=== PATIENT | female | born 1950 | race Caucasian/White ===

== ENCOUNTER → 2017-01-15 | Outpatient (CLI) | payer MEDICARE ==
--- NOTE | 2017-01-18 09:09 | MM ---
Reason for exam: screening (asymptomatic). Last mammogram was performed 1 year and 5 months ago. History: Patient is postmenopausal. Family history of breast cancer in sister at age 50. Benign excisional biopsy of the left breast, January 21, 1999. Ultrasound-guided cyst aspiration of the left breast, January 08, 1999. Benign excisional biopsy of both breasts, 1989. Cyst aspiration of the left breast. Physical Findings: A clinical breast exam by your physician is recommended on an annual basis and results should be correlated with mammographic findings. MG Screening Mammo w CAD Bilateral CC and MLO view(s) were taken. Prior study comparison: August 16, 2015, bilateral MG screening mammo w CAD. January 03, 2014, bilateral MG screening mammo w CAD. The breast tissue is heterogeneously dense. This may lower the sensitivity of mammography. Finding: There are typically benign round, grouped/clustered calcifications in both breasts. There is no discrete abnormality. ASSESSMENT: Benign, BI-RAD 2 RECOMMENDATION: Routine screening mammogram of both breasts in 1 year.
== END | disposition home or self-care (01) ==
LOC: RADMAMWWP 11:19
PROVIDERS: ATTEND Family Medicine
DX: Z12.31 Encounter for screening mammogram for malignant neoplasm of breast (principal)

== ENCOUNTER → 2018-04-07 | Outpatient (CLI) | payer MEDICARE ==
--- NOTE | 2018-04-08 10:32 | MM ---
Reason for exam: screening (asymptomatic). Last mammogram was performed 1 year and 3 months ago. History: Patient is postmenopausal. Family history of breast cancer in sister at age 50. Benign excisional biopsy of the left breast, January 21, 1999. Ultrasound-guided cyst aspiration of the left breast, January 08, 1999. Benign excisional biopsy of both breasts, 1989. Cyst aspiration of the left breast. Physical Findings: A clinical breast exam by your physician is recommended on an annual basis and results should be correlated with mammographic findings. MG 3D Screening Mammo W/Cad Bilateral CC and MLO view(s) were taken. Prior study comparison: January 15, 2017, bilateral MG screening mammo w CAD. August 16, 2015, bilateral MG screening mammo w CAD. The breast tissue is extremely dense which could obscure a lesion on mammography. Finding #1: There is a 5 mm equal density (isodense) mass in the lower outer quadrant of the right breast. Finding #2: There are typically benign calcifications in both breasts. ASSESSMENT: Incomplete: need additional imaging evaluation, BI-RAD 0 RECOMMENDATION: Special view mammogram of the right breast. If lesion persists on supplemental views, image directed ultrasound is recommended. [facility] will attempt to contact patient to return for supplemental views and ultrasound if indicated.
--- NOTE | 2018-04-12 06:44 | BD ---
EXAMINATION TYPE: Axial Bone Density DATE OF EXAM: 04/07/2018 COMPARISON: DEXA bone scan August 16, 2015 CLINICAL HISTORY: Osteopenia per order. Height: 5 FT 3 IN Weight: 185 FRAX RISK QUESTIONS: Family History (Parent hip fracture): YES Secondary Osteoporosis: 3. Menopause before 45: YES Current Tobacco Use: YES RISK FACTORS HISTORY OF: Family History of Osteoporosis: YES Postmenopausal woman: AGE [age] Lost more than 2 inches in height since high school: YES MEDICATIONS: Thyroid Medications: YES Which medication: SYNTHROID How Long: APPROX 10 YEARS Additional Medications: SYNTHROID,EFFEXOR, STATIN, Additional History: EXAM MEASUREMENTS: Bone mineral densitometry was performed using the [employer] System. Bone mineral density as measured about the Lumbar spine is: ----- L1-L4(G/cm2): 1.333 T Score Values are as follows: ----- L2: 1.3 ----- L3: 2.4 ----- L4: 1.0 ----- L1-L4: 1.3 Bone mineral density has: INCREASED 3.4 % since study of: 2015 Bone mineral density about the R hip (g/cm2): 0.821 Bone mineral density about the L hip (g/cm2): 0.808 T Score values are as follows: -----R Neck: -1.6 -----L Neck: -1.7 -----R Total: -0.8 -----L Total: -1.1 Bone mineral density has: INCREASED 1.5 % since study of: 2015 IMPRESSION: Osteopenia (T Score between -2.5 and -1) persists femoral neck level in both hips. Bone density stabl e from prior. There remains slightly increased risk of fracture and the patient may be considered for treatment. Re-Screen 2-5 years. NOTE: T-SCORE=SD OF THE YOUNG ADULT MEAN.
== END | disposition home or self-care (01) ==
LOC: RADMAMWWP 15:45
PROVIDERS: ATTEND Family Medicine
DX: Z12.31 Encounter for screening mammogram for malignant neoplasm of breast (principal); M85.80 Other specified disorders of bone density and structure, unspecified site
CPT/HCPCS: 77063; 77067; 77080

== ENCOUNTER → 2018-04-26 | Outpatient (CLI) | payer MEDICARE ==
--- NOTE | 2018-04-27 08:51 | MM ---
Reason for exam: additional evaluation requested from abnormal screening. Last mammogram was performed 1 month ago. History: Patient is postmenopausal. Family history of breast cancer in sister at age 50. Benign excisional biopsy of the left breast, January 21, 1999. Ultrasound-guided cyst aspiration of the left breast, January 08, 1999. Benign excisional biopsy of both breasts, 1989. Cyst aspiration of the left breast. Physical Findings: Nurse did not find any significant physical abnormalities on exam. MG 3D Work Up W/Cad RT CC and MLO view(s) were taken of the right breast. Prior study comparison: April 07, 2018, bilateral MG 3d screening mammo w/cad. January 15, 2017, bilateral MG screening mammo w CAD. The breast tissue is heterogeneously dense. This may lower the sensitivity of mammography. The questioned 8 o'clock focal asymmetry measures 6 x 4mm. It is isodense and circumscribed. On CC, it appears to have been present on 2013 and on MLO, it appears to have been present on 2011. 6 month follow up recommended. These results were verbally communicated with the patient and result sheet given to the patient on 04/26/18. ASSESSMENT: Probably benign, BI-RAD 3 RECOMMENDATION: Follow-up diagnostic mammogram of the right breast in 6 months.
== END | disposition home or self-care (01) ==
LOC: RADMAMWWP 15:45
PROVIDERS: ATTEND Family Medicine
DX: R92.8 Other abnormal and inconclusive findings on diagnostic imaging of breast (principal)
CPT/HCPCS: 77065; G0279; 77061

== ENCOUNTER → 2019-01-25 | Outpatient (CLI) | payer MEDICARE ==
[2019-01-25 10:38] LABS: Basophils % (A) 1 %; Eosinophils # (A) 0.1 k/uL (0-0.7); Eosinophils % (A) 1 %; HCT 45.1 % (34.0-46.0); HGB 14.4 gm/dL (11.4-16.0); Lymphocytes # (A) 2.1 k/uL (1.0-4.8); Lymphocytes % (A) 34 %; MCH 30.4 pg (25.0-35.0); Mean Platelet Volume 9.6; Monocytes # (A) 0.3 k/uL (0-1.0); Monocytes % (A) 5 %; Neutrophils # (A) 3.6 k/uL (1.3-7.7); Neutrophils % (A) 56 %; Platelet Count 192 k/uL (150-450); RBC 4.74 m/uL (3.80-5.40); RDW 13.8 % (11.5-15.5); WBC 6.3 k/uL (3.8-10.6)
[2019-01-25 10:50] LABS: Ionized Calcium 5.3 mg/dL (4.5-5.3)
[2019-01-25 15:56] LABS: T4, Free (Free Thyroxine) 1.2 ng/dL (0.80-1.80)
== END | disposition home or self-care (01) ==
LOC: LABWHC1 09:44
PROVIDERS: ATTEND Physician Assistant
DX: E03.9 Hypothyroidism, unspecified (principal); E21.0 Primary hyperparathyroidism; Z51.81 Encounter for therapeutic drug level monitoring
CPT/HCPCS: 36415; 82330; 83970; 84439; 84443; 85025

== ENCOUNTER → 2022-01-28 | Outpatient (CLI) | payer MEDICARE ==
--- NOTE | 2022-01-28 16:40 | CTL ---
EXAMINATION TYPE: CT Low Dose Lung DATE OF EXAM ORDERED: 01/28/2022 HISTORY: Personal tobacco use. Lung cancer screening CT DLP: 76.[address] CTDI: 2.4 mGy Automated exposure control for dose reduction was used. SCREENING VISIT: First screening COMPARISON: None TECHNIQUE: Low dose computed tomography scan was performed through the chest at 1 mm thick sections a nd reconstructed images in multiple planes at 1 mm and [address] DIAGNOSTIC QUALITY: Satisfactory FINDINGS: LUNG NODULES: No concerning pulmonary nodules. LUNGS: COPD: Severity: Mild centrilobular and paraseptal emphysematous changes. Fibrosis: Severity: None Lymph nodes: None Other findings: None RIGHT PLEURAL SPACE: Effusion: None Calcification: None Thickening: None Pneumothorax: None LEFT PLEURAL SPACE: Effusion: None Calcification: None Thickening: None Pneumothorax: None HEART: Heart Size: Normal Coronary Calcification: None Pericardial Effusion: None OTHER FINDINGS: Upper abdomen: None Bony thorax: None Supraclavicular region: None Other: Atherosclerotic calcification of the aorta and its branches. Small hiatal hernia. IMPRESSION: No concerning pulmonary nodules. Mild COPD changes. CT LUNG RAD AND CT CHEST RECOMMENDATION: Lung-Rad 1 Negative: Continue annual screening with LDCT in 12 months. S Modifier (other clinically significant findings): None
== END | disposition home or self-care (01) ==
LOC: RADCTMAIN 12:40
PROVIDERS: ATTEND Internal Medicine
DX: J44.9 Chronic obstructive pulmonary disease, unspecified (principal)
CPT/HCPCS: 71271

== ENCOUNTER → 2022-06-18 | Outpatient (CLI) | payer MEDICARE ==
--- NOTE | 2022-06-19 13:40 | MM ---
Reason for Exam: Screening (asymptomatic). Last mammogram was performed 4 year(s) and 2 month(s) ago. Patient History: Menarche at age 9. First Full-Term at age 19. Postmenopausal. 1989, Bilateral Benign Excisional Biopsy. Cyst Aspiration on the Left side. 01/21/1999, Benign Excisional Biopsy on the left side. 01/08/1999, Ultrasound-Guided Cyst Aspiration on the Left side. Sister had breast cancer, age 50. Sister had breast cancer under age 50. Risk Values: Stephy 5 year model risk: 11.4%. NCI Lifetime model risk: 26.9%. Prior Study Comparison: 01/15/2017 Bilateral Screening Mammogram, [facility]. 04/07/2018 Bilateral Screening Mammogram, [facility]. 04/26/2018 Right Diagnostic Mammogram, [facility]. Tissue Density: The breast tissue is heterogeneously dense. This may lower the sensitivity of mammography. Findings: Analyzed By CAD. Pattern appears symmetrical and stable. Multiple benign scattered calcifications are present. No suspicious groups of microcalcifications, spiculated or lobular masses, architectural distortion or other secondary signs of malignancy are mammographically apparent. Overall Assessment: Benign, BI-RAD 2 Management: Screening Mammogram of both breasts in 1 year. A negative mammogram report should not preclude additional follow up of suspicious palpable abnormalities. Patient should continue monthly self breast exam. A clinical breast exam by your physician is recommended on an annual basis and results should be correlated with mammographic findings. Electronically signed and approved by: Alton Arauz D.O. Radiologis
--- NOTE | 2022-06-19 15:05 | BD ---
EXAMINATION TYPE: Axial Bone Density DATE OF EXAM: 06/18/2022 COMPARISON: 04-07-18 CLINICAL HISTORY: 71 years year old Female. ICD-10 CODE: Z78.0 menopausal without HRT Height: 63IN Weight: 177LB FRAX RISK QUESTIONS: Family History (Parent hip fracture): YES Secondary Osteoporosis: 3. Menopause before 45: AT 44 Current Tobacco Use: YES RISK FACTORS HISTORY OF: Family History of Osteoporosis: YES Active: NO Postmenopausal woman: YES Lost more than 2 inches in height since high school: YES Frequent falls: YES Hyperparathyroidism: PT UNSURE MEDICATIONS: Thyroid Medications: Which medication: Synthroid How Long: ABOUT 20 YEARS Additional Medications: CHOLESTEROL MED, EFFEXOR, CALCIUM WITH VITAMIN D Additional History: EXAM MEASUREMENTS: Bone mineral densitometry was performed using the [employer] System. Bone mineral density as measured about the Lumbar spine is: ----- L1-L4(G/cm2): 1.364 T Score Values are as follows: ----- L1: 0.5 ----- L2: 1.4 ----- L3: 2.2 ----- L4: 1.7 ----- L1-L4: 1.5 Bone mineral density has: Increased 2.4% since study of: 04-07-18 Bone mineral density about the R hip (g/cm2): 0.878 Bone mineral density about the L hip (g/cm2): 0.832 T Score values are as follows: -----R Neck: -1.9 -----L Neck: -1.8 -----R Total: -1.0 -----L Total: -1.4 Bone mineral density has: Decreased -3.7% since study of: 04-07-18 FRAX%s: The graph provided illustrates a 21.1% chance for a major osteoporotic fx and a 11.0% chance for the hips probability for fx in 10 years time. IMPRESSION: Osteopenia (T Score between -2.5 and -1). There is slightly increased risk of fracture and the patient may be considered for treatment. Re-Screen 2-5 years. NOTE: T-SCORE=SD OF THE YOUNG ADULT MEAN.
== END | disposition home or self-care (01) ==
LOC: RADBDWWP 12:55
PROVIDERS: ATTEND Internal Medicine
DX: Z12.31 Encounter for screening mammogram for malignant neoplasm of breast (principal); Z13.820 Encounter for screening for osteoporosis; M85.89 Other specified disorders of bone density and structure, multiple sites; Z78.0 Asymptomatic menopausal state
CPT/HCPCS: 77063; 77067; 77080

== ENCOUNTER → 2022-12-28 | Outpatient (CLI) | payer MEDICARE ==
--- NOTE | 2022-12-28 14:40 | US ---
EXAMINATION TYPE: US thyroid st tissue head/neck DATE OF EXAM: 12/28/2022 COMPARISON: 03/28/2014 CLINICAL INDICATION: Female, 72 years old with history of E03.9 HYPOTHYROIDISM; ABN BLOODWORK, ON THY ROID MEDICATION 10+ YEARS, PARATHYROID GLAND REMOVED 10 YEARS PRIOR GLAND SIZE: Right Lobe: 3.4X0.9X1.0 cm Overall Parenchyma: heterogenous Left Lobe: 2.0X0.8X0.9 cm Overall Parenchyma: heterogenous Isthmus Thickness: 0.3 cm NODULES RIGHT: # of nodules measured on right: 0 LEFT: # of nodules measured on left: 0 ISTHMUS: # of nodules measured in the isthmus: 0 Bilateral neck scanned, lymphadenopathy NOTED ON LEFT SIDE NEAR JUGULAR CHAIN, LARGEST MEASURES 3.0X1 .6X0.6CM. This demonstrates benign morphology with central fatty hilum. IMPRESSION: Heterogenous mildly atrophic thyroid gland. Previously seen complex left thyroid nodule is not defini tively visualized on today's exam. No new discrete thyroid nodule identified. 2017 ACR TI-RADS LEVEL: *Highest TI-RADS level nodule reported
== END | disposition home or self-care (01) ==
LOC: RADUSWWP 13:46
PROVIDERS: ATTEND Internal Medicine
DX: E03.9 Hypothyroidism, unspecified (principal); E04.1 Nontoxic single thyroid nodule
CPT/HCPCS: 76536

== ENCOUNTER → 2023-10-15 | Outpatient (CLI) | payer MEDICARE ==
[2023-10-15 12:35] LABS: ALT 43 U/L (4-34); AST 40 U/L (14-36); African American GFR (CKD) 71 (>60 ml/min/1.73 sqM); Albumin 4.3 g/dL (3.5-5.0); Albumin/Globulin Ratio 1.7; Alkaline Phosphatase 72 U/L (38-126); Anion Gap 7 mmol/L; Blood Urea Nitrogen 14 mg/dL (7-17); Calcium 9.6 mg/dL (8.4-10.2); Carbon Dioxide 26 mmol/L (22-30); Chloride 108 mmol/L (98-107); Globulin 2.5 g/dL; Glucose 108 mg/dL (74-99); Non-African American GFR(CKD) 62 (>60 ml/min/1.73 sqM); Potassium 3.9 mmol/L (3.5-5.1); Sodium 141 mmol/L (137-145); Total Bilirubin 0.8 mg/dL (0.2-1.3); Total Protein 6.8 g/dL (6.3-8.2)
[2023-10-15 12:44] LABS: T4, Free (Free Thyroxine) 1.15 ng/dL (0.78-2.19)
[2023-10-15 16:06] LABS: Basophils # (A) 0.04 X 10*3/uL (0.00-0.10); Basophils % (A) 0.5 %; Eosinophils # (A) 0.05 X 10*3/uL (0.04-0.35); Eosinophils % (A) 0.6 %; HCT 46.2 % (37.2-46.3); HGB 14.7 g/dL (12.0-15.0); Lymphocytes # (A) 1.64 X 10*3/uL (0.90-5.00); Lymphocytes % (A) 19.2 %; MCH 32.3 pg (27.0-32.0); MCHC 31.8 g/dL (32.0-37.0); MCV 101.5 FL (80.0-97.0); Mean Platelet Volume 13.7 FL (9.5-12.2); Monocytes # (A) 0.55 X 10*3/uL (0.20-1.00); Monocytes % (A) 6.5 %; NRBC Per 100 WBC 0 X 10*3/uL (0.00-0.01); Neutrophils % (A) 72.7 %; Platelet Count 183 X 10*3/uL (140-440); RBC 4.55 X 10*6/uL (4.10-5.20); RDW 14.3 % (11.5-14.5); WBC 8.52 X 10*3/uL (4.50-10.00)
[2023-10-15 19:17] LABS: Chol/HDL Ratio 3.69 Ratio; VLDL Calculation 18.52 mg/dL (5.00-40.00)
== END | disposition home or self-care (01) ==
LOC: LABWHC1 11:19
PROVIDERS: ATTEND Internal Medicine
DX: I10 Essential (primary) hypertension (principal); E78.5 Hyperlipidemia, unspecified; M85.80 Other specified disorders of bone density and structure, unspecified site; R19.7 Diarrhea, unspecified
CPT/HCPCS: 36415; 80053; 80061; 82140; 82306; 82330; 82607; 82746; 84439; 84443; 85025; 86780

== ENCOUNTER 2023-11-02 12:40 | Inpatient (IN) | payer MEDICARE ==
--- NOTE | 2023-11-02 14:16 | ED ---
Altered Mental Status HPI - General Source: patient, family, RN notes reviewed Mode of arrival: wheelchair Limitations: no limitations <Lio Parra - Last Filed: 11/02/23 14:14> <Donny Shirley - Last Filed: 11/02/23 18:08> - General Chief Complaint: Altered Mental Status Stated Complaint: Fall-Chest pains/AMS Time Seen by Provider: 11/02/23 12:59 - History of Present Illness Initial Comments: Quick [id number] female presents emergency department with family for increasing confusion, shortness of breath. Family states that she has been very forgetful recently. Patient saw PCP who is scheduled MRIs, CTs but due to worsening symptoms presented to emergency department. Patient states she does have COPD feels that is getting worse. They did attempt a urinalysis today but was unsuccessful. Family has not noticed any focal weakness just generalized confusion. (Lio Parra) 72-year-old female with progressive confusion over the past 2 months, history is obtained predominantly from the daughter. The patient herself has no complaints. She believes it is fall timeframe. She does live alone. She reports poor appetite. No pain complaints. No fever. No dysuria. No vomiting. There is left-sided facial droop although the daughter is uncertain of when this may have started. (Donny Shirley) - Related Data Home Medications Medication Instructions Recorded Confirmed Atorvastatin [Lipitor] 40 mg PO DAILY 11/02/23 11/02/23 Calcium Carbonate [Calcium] 600 mg PO DAILY 11/02/23 11/02/23 Esomeprazole Magnesium [NexIUM] 20 mg PO DAILY 11/02/23 11/02/23 Levothyroxine Sodium [Synthroid] 137 mcg PO DAILY 11/02/23 11/02/23 Levothyroxine Sodium [Synthroid] 150 mcg PO DIRECTED 11/02/23 11/02/23 Venlafaxine HCl [Effexor XR] 150 mg PO DAILY 11/02/23 11/02/23 amLODIPine [Norvasc] 5 mg PO DAILY 11/02/23 11/02/23 Allergies Allergy/AdvReac Type Severity Reaction Status Date / Time diphenhydramine AdvReac Hallucinati Verified 11/02/23 17:23 [From Benadryl] ons Review of Systems ROS Other: All systems not noted in ROS Statement are negative. <Lio Parra - Last Filed: 11/02/23 14:14> ROS Other: All systems not noted in ROS Statement are negative. <Donny Shirley - Last Filed: 11/02/23 18:08> ROS Statement: Those systems with pertinent positive or pertinent negative responses have been documented in the HPI. Past Medical History Past Medical History: GERD/Reflux, Hyperlipidemia, Thyroid Disorder Additional Past Surgical History / Comment(s): thyroidectomy Past Psychological History: Depression Past Alcohol Use History: None Reported Past Drug Use History: None Reported <Lio Parra - Last Filed: 11/02/23 14:14> General Exam Limitations: no limitations General appearance: alert, in no apparent distress <Lio Parra - Last Filed: 11/02/23 14:14> Head exam: Present: atraumatic, normocephalic Eye exam: Present: normal appearance, PERRL ENT exam: Present: normal exam Neck exam: Present: normal inspection. Absent: tenderness, meningismus Respiratory exam: Present: normal lung sounds bilaterally. Absent: respiratory distress, wheezes Cardiovascular Exam: Present: regular rate, normal rhythm GI/Abdominal exam: Present: soft. Absent: distended Extremities exam: Present: normal inspection Neurological exam: Present: alert, CN II-XII intact, motor sensory deficit (Left facial droop, NIH of 1). Absent: oriented X3 Psychiatric exam: Present: normal affect, normal mood Skin exam: Present: warm, dry, intact. Absent: cyanosis, diaphoretic <Donny Shirley - Last Filed: 11/02/23 18:08> - General Exam Comments Initial Comments: Visual Physical Exam Vital signs reviewed General: Well-appearing, nontoxic, no acute distress. Head: Normocephalic, atraumatic Eyes: PERRLA, EOMI ENT: Airway patent Chest: Nonlabored breathing Skin: No visual rash, normal skin tone Neuro: Alert and oriented 3 Musculoskeletal: No gross abnormalities (Lio Parra) Course Vital Signs 11/02/23 11/02/23 13:15 17:21 Temperature 97.8 F Pulse Rate 87 78 Respiratory 18 16 Rate Blood Pressure 123/73 113/52 O2 Sat by Pulse 95 98 Oximetry Medical Decision Making <Lio Parra - Last Filed: 11/02/23 14:14> - Lab Data Result diagrams: 11/02/23 16:31 11/02/23 16:31 <Donny Shirley - Last Filed: 11/02/23 18:08> - Medical Decision Making I completed the quick note portion of this chart signed Lio Parra PA-C (Lio Parra) Was pt. sent in by a medical professional or institution (MARIAH Tan, UNIX MANAGER, urgent care, hospital, or shelter...) When possible be specific @ -No Did you speak to anyone other than the patient for history (EMS, parent, family, police, friend...)? What history was obtained from this source @Patient's daughter Did you review nursing and triage notes (agree or disagree)? Why? @ -I reviewed and agree with nursing and triage notes Were old charts reviewed (outside hosp., previous admission, EMS record, old EKG, old radiological studies, urgent care reports/EKG's, shelter records)? Report findings @ -No old charts were reviewed Differential CVA Ischemic stroke, hemorrhagic stroke, brain tumor, atypical migraine, Wernicke's encephalopathy, seizure, multiple sclerosis, meningitis, encephalitis, hypoglycemia, Guillain-Pederson, electrolytes disturbance, myasthenia gravis.... This is not meant to be an all-inclusive list EKG interpreted by me (3pts min.). @ -Sinus rhythm rate of 83, WA interval 120, QRS duration 82, QTc [address] segment changes. X-rays interpreted by me (1pt min.). @ -Chest x-ray, small right pleural effusion, no additional acute findings. CT interpreted by me (1pt min.). @CT brain showing remote CVA without intracranial hemorrhage or mass effect. U/S interpreted by me (1pt. min.). @ -None done What testing was considered but not performed or refused? (CT, X-rays, U/S, labs)? Why? @ -None What meds were considered but not given or refused? Why? @ -None Did you discuss the management of the patient with other professionals (professionals i.e. MARIAH Tan, UNIX MANAGER, lab, RT, psych nurse, licensed social worker, associate dean, teacher, port patrol officer, case filler)? Give summary @ -No Was smoking cessation discussed for >3mins.? @ -No Was critical care preformed (if so, how long)? @ -No Were there social determinants of health that impacted care today? How? (Homelessness, low income, unemployed, alcoholism, drug addiction, transportation, low edu. Level, literacy, decrease access to med. care, m[facility], r ehab)? @ -No Was there de-escalation of care discussed even if they declined (Discuss DNR or withdrawal of care, Hospice)? DNR status @ -No What co-morbidities impacted this encounter? (DM, HTN, Smoking, COPD, CAD, Cancer, CVA, ARF, Chemo, Hep., AIDS, mental health diagnosis, sleep apnea, morbid obesity)? @ -None Was patient admitted / discharged? Hospital course, mention meds given and route, prescriptions, significant lab abnormalities, going to OR and other pertinent info. @ -Patient admitted for further evaluation of confusion, CVA. Patient's symptoms have been progressive over the past [address] brain does show concern for CVA without prior history. Patient given aspirin in the emergency department and will be admitted for further stroke evaluation, neurology placed on consult. Case discussed with Dr. Rae. Undiagnosed new problem with uncertain prognosis? @ -No Drug Therapy requiring intensive monitoring for toxicity (Heparin, Nitro, Insulin, Cardizem)? @ -No Were any procedures done? @ -No Diagnosis/symptom? @Altered mental status, CVA Acute, or Chronic, or Acute on Chronic? @ -[Acute Uncomplicated (without systemic symptoms) or Complicated (systemic symptoms)? @ -Default Side effects of treatment? @ -No Exacerbation, Progression, or Severe Exacerbation? @ -No Poses a threat to life or bodily function? How? (Chest pain, [place], AR, pneumonia, PE, COPD, DKA, ARF, appy, cholecystitis, CVA, Diverticulitis, Homicidal, Suicidal, threat to staff... and all critical care pts) @Yes, CVA (Donny Shirley) - Lab Data Lab Results 11/02/23 11/02/23 11/02/23 Range/Units 16:31 16:31 16:31 WBC 8.8 (3.8-10.6) k/uL RBC 4.22 (3.80-5.40) m/uL Hgb 13.6 (11.4-16.0) gm/dL Hct 42.1 (34.0-46.0) % MCV 99.7 (80.0-100.0) fL MCH 32.3 (25.0-35.0) pg MCHC 32.4 (31.0-37.0) g/dL RDW 13.1 (11.5-15.5) % Plt Count 223 (150-450) k/uL MPV 9.6 Neutrophils % 66 % Lymphocytes % 23 % Monocytes % 7 % Eosinophils % 1 % Basophils % 1 % Neutrophils # 5.8 (1.3-7.7) k/uL Lymphocytes # 2.0 (1.0-4.8) k/uL Monocytes # 0.7 (0-1.0) k/uL Eosinophils # 0.1 (0-0.7) k/uL Basophils # 0.1 (0-0.2) k/uL Sodium 138 (137-145) mmol/L Potassium 3.6 (3.5-5.1) mmol/L Chloride 106 (98-107) mmol/L Carbon Dioxide 25 (22-30) mmol/L Anion Gap 7 mmol/L BUN 11 (7-17) mg/dL Creatinine 0.57 (0.52-1.04) mg/dL Est GFR (CKD-EPI)AfAm >90 (>60 ml/min/1.73 sqM) Est GFR (CKD-EPI)NonAf >90 (>60 ml/min/1.73 sqM) Glucose 97 (74-99) mg/dL Calcium 9.1 (8.4-10.2) mg/dL Total Bilirubin 1.1 (0.2-1.3) mg/dL AST 23 (14-36) U/L ALT 19 (4-34) U/L Alkaline Phosphatase 91 (38-126) U/L Ammonia <9 (<30) umol/L Troponin I (0.000-0.034) ng/mL Total Protein 6.3 (6.3-8.2) g/dL Albumin 3.6 (3.5-5.0) g/dL 11/02/23 Range/Units 16:31 WBC (3.8-10.6) k/uL RBC (3.80-5.40) m/uL Hgb (11.4-16.0) gm/dL Hct (34.0-46.0) % MCV (80.0-100.0) fL MCH (25.0-35.0) pg MCHC (31.0-37.0) g/dL RDW (11.5-15.5) % Plt Count (150-450) k/uL MPV Neutrophils % % Lymphocytes % % Monocytes % % Eosinophils % % Basophils % % Neutrophils # (1.3-7.7) k/uL Lymphocytes # (1.0-4.8) k/uL Monocytes # (0-1.0) k/uL Eosinophils # (0-0.7) k/uL Basophils # (0-0.2) k/uL Sodium (137-145) mmol/L Potassium (3.5-5.1) mmol/L Chloride (98-107) mmol/L Carbon Dioxide (22-30) mmol/L Anion Gap mmol/L BUN (7-17) mg/dL Creatinine (0.52-1.04) mg/dL Est GFR (CKD-EPI)AfAm (>60 ml/min/1.73 sqM) Est GFR (CKD-EPI)NonAf (>60 ml/min/1.73 sqM) Glucose (74-99) mg/dL Calcium (8.4-10.2) mg/dL Total Bilirubin (0.2-1.3) mg/dL AST (14-36) U/L ALT (4-34) U/L Alkaline Phosphatase (38-126) U/L Ammonia (<30) umol/L Troponin I <0.012 (0.000-0.034) ng/mL Total Protein (6.3-8.2) g/dL Albumin (3.5-5.0) g/dL Disposition <Lio Parra M - Last Filed: 11/02/23 14:14> Is patient prescribed a controlled substance at d/c from ED?: No Time of Disposition: 17:59 <Donny Shirley - Last Filed: 11/02/23 18:08> Clinical Impression: Altered mental status, CVA (cerebral vascular accident) Disposition: ADMITTED IP TO THIS HOSP Condition: Stable
--- NOTE | 2023-11-02 14:42 | CT ---
EXAMINATION TYPE: CT brain wo con CT DLP: 1137.0 mGycm, Automated exposure control for dose reduction was used. DATE OF EXAM: 11/02/2023 2:32 PM COMPARISON: None. CLINICAL INDICATION:Female, 72 years old with history of Altered mental status, AMS TECHNIQUE: Brain: Axial CT images of the brain were obtained with coronal and sagittal reformats created and rev iewed. Contrast used: None. Oral contrast used: None. FINDINGS: Brain: Extra-axial spaces: No abnormal extra-axial fluid collections. Ventricular system: Dilatation in proportion to cerebral atrophy. Cerebral parenchyma: Cerebral atrophy. Injuries of the right basal ganglia right caudate nucleus and bilateral thalami thought to be present. No acute intraparenchymal hemorrhage or mass effect. The gr ay-white junction is well differentiated. Scattered hypoattenuating areas are seen within the white m atter. Cerebellum: Unremarkable. Mass effect: No evidence of midline shift. Intracranial vasculature: Atherosclerotic calcifications of the intracranial vessels. Soft tissues: Normal. Calvarium/osseous structures: No depressed skull fracture. Paranasal sinuses and mastoid air cells: Mild scattered paranasal sinus disease. Visualized orbits: Orbital contents are intact. IMPRESSION: 1. No acute intracranial process. 2. Nonspecific white matter changes, likely secondary to chronic small vessel ischemic disease. 3. Remote injuries to the right basal ganglia right caudate nucleus and thalami. Correlate with MRI
--- NOTE | 2023-11-02 15:45 | XR ---
EXAMINATION TYPE: XR chest 2V DATE OF EXAM: 11/02/2023 3:39 PM CLINICAL INDICATION:Female, 72 years old with history of altered mental status; COMPARISON: None TECHNIQUE: XR chest 2V Frontal and lateral views of the chest. FINDINGS: Lungs/Pleura: Blunting of the right costophrenic angle. There is no evidence of left pleural effusion , focal consolidation, or pneumothorax. Pulmonary vascularity: Unremarkable. Heart/mediastinum: Cardiomediastinal silhouette is unremarkable. Atherosclerotic calcifications are seen in the aorta. Musculoskeletal: No acute osseous pathology. IMPRESSION: 1. Small right pleural effusion. 2. COPD.
[2023-11-02 16:47] LABS: Basophils # (A) 0.1 k/uL (0-0.2); Basophils % (A) 1 %; Eosinophils # (A) 0.1 k/uL (0-0.7); Eosinophils % (A) 1 %; HCT 42.1 % (34.0-46.0); HGB 13.6 gm/dL (11.4-16.0); Lymphocytes % (A) 23 %; MCH 32.3 pg (25.0-35.0); MCHC 32.4 g/dL (31.0-37.0); MCV 99.7 fL (80.0-100.0); Mean Platelet Volume 9.6; Monocytes # (A) 0.7 k/uL (0-1.0); Monocytes % (A) 7 %; Neutrophils # (A) 5.8 k/uL (1.3-7.7); Neutrophils % (A) 66 %; Platelet Count 223 k/uL (150-450); RBC 4.22 m/uL (3.80-5.40); RDW 13.1 % (11.5-15.5); WBC 8.8 k/uL (3.8-10.6)
[2023-11-02 17:02] LABS: ALT 19 U/L (4-34); AST 23 U/L (14-36); African American GFR (CKD) >90 (>60 ml/min/1.73 sqM); Albumin 3.6 g/dL (3.5-5.0); Alkaline Phosphatase 91 U/L (38-126); Anion Gap 7 mmol/L; Blood Urea Nitrogen 11 mg/dL (7-17); Calcium 9.1 mg/dL (8.4-10.2); Carbon Dioxide 25 mmol/L (22-30); Chloride 106 mmol/L (98-107); Glucose 97 mg/dL (74-99); Non-African American GFR(CKD) >90 (>60 ml/min/1.73 sqM); Potassium 3.6 mmol/L (3.5-5.1); Sodium 138 mmol/L (137-145); Total Bilirubin 1.1 mg/dL (0.2-1.3); Total Protein 6.3 g/dL (6.3-8.2)
[2023-11-02] MEDS: ASPIRIN 325 MG TAB PO STA (17:19)
[2023-11-02 18:48] LABS: Prothrombin Time 10.6 sec (10.0-12.5)
[2023-11-02 18:49] LABS: Partial Thromboplastin Time 22.3 sec (22.0-30.0)
--- NOTE | 2023-11-02 19:27 | US ---
EXAMINATION TYPE: US carotid duplex BILAT DATE OF EXAM: 11/02/2023 COMPARISON: NONE CLINICAL INDICATION: Female, 72 years old with history of Stenosis; stenosis Slightly limited due to pt SOB TECHNIQUE: Carotid duplex ultrasound examination. Indirect Doppler criteria was utilized. FINDINGS: EXAM MEASUREMENTS: RIGHT: Peak Systolic Velocity (PSV) cm/sec ----- Right CCA: 90.4 ----- Right ICA: 70.8 ----- Right ECA: 88.1 ICA/CCA ratio: 0.8 RIGHT: End Diastole cm/sec ----- Right CCA: 28.1 ----- Right ICA: 25.2 ----- Right ECA: 15.7 LEFT: Peak Systolic Velocity (PSV) cm/sec ----- Left CCA: 70.3 ----- Left ICA: 87.7 ----- Left ECA: 97.8 ICA/CCA ratio: 1.25 LEFT: End Diastole cm/sec ----- Left CCA: 18.4 ----- Left ICA: 28.6 ----- Left ECA: 36.4 VERTEBRALS (direction of flow): Right Vertebral: Antegrade Left Vertebral: Antegrade Rhythm: Normal PHYSIOLOGICAL CHEMIST NOTES: Plaque seen in bilat bulbs. Left ICA appears tortuous IMPRESSION: Atherosclerotic disease without significant stenosis.
[2023-11-02] MEDS: ATORVASTATIN 80 MG TAB PO SCH (20:31)
--- NOTE | 2023-11-03 01:46 | P.HPIM ---
History of Present Illness H&P Date: 11/02/23 Patient is a 72-year-old female with a PMH of hypertension, hyperlipidemia, and hypothyroidism who was brought into the emergency room by family due to worsening confusion. The history was supplemented by the patient's daughter at the bedside. Patient reports that over the past 2 months, she has been experiencing somewhat unsteady gait and has experienced 1 fall at home several weeks ago. She also reports not quite feeling like herself during this time. Daughter notes that she has been increasingly confused, and lives by herself. She has been following with her PCP Dr. Arambula who had ordered brain MRI which has yet to be completed. The patient denied experiencing focal weakness, heada ches, visual disturbances, fever, chills, cough, nausea, vomiting, abdominal pain, diarrhea, or urinary complaints. CT brain in the emergency room revealed chronic small vessel ischemic disease along with remote injuries to the right basal ganglia, right caudate nucleus, and thalami. EKG revealed sinus rhythm at [address]/T wave changes noted as reviewed by me. Carotid Doppler also revealed no significant stenosis. Chest x-ray revealed findings consistent with COPD with no acute changes. Laboratory evaluation revealed a troponin less than 0.012, WBC count 8.8, hemoglobin 13.6, sodium 138, potassium 3.6, BUN 11, and creatinine 0.57. ED documentation reviewed and case discussed with ED provider. Review of systems: Pertinent positives and negatives as discussed in HPI, a complete review of systems was performed and all other systems are negative. Physical examination: Vital signs reviewed General: non toxic, no distress, appears at stated age, normal weight Derm: no unusual rashes/lesions, warm Head: atraumatic, normocephalic, symmetric Eyes: EOMI, no lid lag, anicteric sclera, pupils equal round reactive to light ENT: Nose and ears atraumatic Neck: No cervical lymphadenopathy, trachea midline, supple Mouth: no lip lesion, mucus membranes moist Cardiovascular: S1S2 reg, no murmur, positive dorsalis pedis pulse bilateral, no edema Lungs: CTA bilateral, no rhonchi, no rales, no accessory muscle use Abdominal: soft, nontender to palpation, no guarding Ext: muscle strength 5 out of 5 in all 4 extremities grossly, no gross muscle atrophy, no contractures, Neuro: Left sided mild facial droop noted, cranial nerves II through XII otherwise intact Psych: Oriented to person and place, not oriented to time (believes it is 2013) Assessment: Left-sided facial droop, unsteady gait, and confusion, rule out CVA Chronic conditions: Hypertension, hyperlipidemia, hypothyroidism Imaging: CT brain in the emergency room revealed chronic small vessel ischemic disease a long with remote injuries to the right basal ganglia, right caudate nucleus, and thalami. EKG revealed sinus rhythm at [address]/T wave changes noted as reviewed by me. Carotid Doppler also revealed no significant stenosis. Chest x-ray revealed findings consistent with COPD with no acute changes. Data Review: Laboratory evaluation revealed a troponin less than 0.012, WBC count 8.8, hem oglobin 13.6, sodium 138, potassium 3.6, BUN 11, and creatinine 0.57. Plan: Brain MRI ordered Obtain echocardiogram Cardiac monitoring Continue with aspirin and high-dose statin Obtain PT and PREASSEMBLER AND INSPECTOR consults Neurology consulted Check TSH and B12 levels Fall precautions Neurochecks Resume home medications including Norvasc, Synthroid, Effexor DVT prophylaxis: Lovenox subcu The patient is admitted with an anticipated greater than 2 midnight stay for evaluation of CVA CODE STATUS: Full Code Discussed with: Patient Anticipated discharge place: Home Past Medical History Past Medical History: GERD/Reflux, Hyperlipidemia, Thyroid Disorder Additional Past Surgical History / Comment(s): thyroidectomy Past Psychological History: Depression Past Alcohol Use History: None Reported Past Drug Use History: None Reported Medications and Allergies Home Medications Medication Instructions Recorded Confirmed Type Atorvastatin [Lipitor] 40 mg PO DAILY 11/02/23 11/02/23 History Calcium Carbonate [Calcium] 600 mg PO DAILY 11/02/23 11/02/23 History Esomeprazole Magnesium [NexIUM] 20 mg PO DAILY 11/02/23 11/02/23 History Levothyroxine Sodium [Synthroid] 137 mcg PO DAILY 11/02/23 11/02/23 History Levothyroxine Sodium [Synthroid] 150 mcg PO DIRECTED 11/02/23 11/02/23 History Venlafaxine HCl [Effexor XR] 150 mg PO DAILY 11/02/23 11/02/23 History amLODIPine [Norvasc] 5 mg PO DAILY 11/02/23 11/02/23 History Allergies Allergy/AdvReac Type Severity Reaction Status Date / Time diphenhydramine AdvReac Hallucinati Verified 11/02/23 17:23 [From Benadryl] ons Physical Exam Vitals: Vital Signs Temp Pulse Resp BP Pulse Ox 11/02/23 17:21 78 16 113/52 98 11/02/23 13:15 97.8 F 87 18 123/73 95 Intake and Output 11/02/23 11/02/23 11/03/23 14:59 22:59 06:59 Other: Weight 81.647 kg Results CBC & Chem 7: 11/02/23 16:31 11/02/23 16:31
[2023-11-03 05:55] LABS: Appearance,Urine Cloudy (Clear); Bacteria,Urine Many /hpf; Bilirubin,Urine Negative (Negative); Blood,Urine Trace (Negative); Color,Urine Yellow; Glucose,Urine (UA) Negative (Negative); Ketones,Urine Negative (Negative); Leukocyte Esterase,Urine Large (Negative); Mucus,Urine Moderate /hpf; Nitrite,Urine Negative (Negative); PH, Urine 6.5 (5.0-8.0); Protein,Urine Negative (Negative); RBC,Urine 2 /hpf (0-5); Specific Gravity,Urine 1.012 (1.001-1.035); Squamous Epithelial Cell,Urine 4 /hpf (0-4); WBC,Urine >182 /hpf (0-5)
[2023-11-03] MEDS: ASPIRIN 325 MG TAB PO SCH (08:57)
[2023-11-03] MEDS: LEVOTHYROXINE 137 MCG TAB PO SCH (08:57)
[2023-11-03] MEDS: VENLAFAXINE HCL ER 150 MG CAP PO SCH (08:57)
[2023-11-03] MEDS: ENOXAPARIN 40 MG/0.4 ML SYRINGE SQ SCH (08:58)
[2023-11-03] MEDS: amLODIPine 5 MG TAB PO SCH (08:58)
[2023-11-03 12:12] LABS: Chol/HDL Ratio 3.88 Ratio; LDL Cholesterol,Calculated 71.6 mg/dL (0.0-131.0); VLDL Calculation 16.72 mg/dL (5.00-40.00)
--- NOTE | 2023-11-03 12:13 | CA ---
Transthoracic Echo Report Name: Marie Bettencourt Age: 72 Gender: F : 1950 Exam Date: 11/03/2023 09:22 Exam Location: [facility] Ht (in): 65 Wt (lb): 180 Ordering Physician: Donny Shirley MD Attending/Referring Phys: [id number], [employer] Marilyn Jolley RDCS Procedure CPT: Indications: Thrombus Cardiac Hx: Technical Quality: Fair Contrast 1: Total Dose (mL): Contrast 2: Total Dose (mL): MEASUREMENTS (Male / Female) Normal Values 2D ECHO LV Diastolic Diameter PLAX 5.0 cm 4.2 - 5.9 / 3.9 - 5.3 cm LV Systolic Diameter PLAX 3.0 cm IVS Diastolic Thickness 1.3 cm 0.6 - 1.0 / 0.6 - 0.9 cm LVPW Diastolic Thickness 1.0 cm 0.6 - 1.0 / 0.6 - 0.9 cm LV Relative Wall Thickness 0.5 RV Internal Dim ED PLAX 2.1 cm LVOT Diameter 1.9 cm LA Systolic Diameter LX 4.9 cm 3.0 - 4.0 / 2.7 - 3.8 cm LV Diastolic Volume MOD BP 36.6 cm??? 67 - 155 / 56 - 104 cm??? LV Systolic Volume MOD BP 17.1 cm??? 22 - 58 / 19 - 49 cm??? LV Ejection Fraction MOD BP 53.3 % >= 55 % LV Cardiac Index MOD BP 746.1 cm???/min???m??? LV Diastolic Volume MOD 4C 40.4 cm??? LV Systolic Volume MOD 4C 21.7 cm??? LV Ejection Fraction MOD 4C 46.2 % LV Cardiac Index MOD 4C 713.7 cm???/min???m??? LV Diastolic Length 4C 6.2 cm LV Systolic Length 4C 5.4 cm LV Diastolic Volume MOD 2C 33.1 cm??? LV Systolic Volume MOD 2C 12.5 cm??? LV Ejection Fraction MOD 2C 62.2 % LV Cardiac Index MOD 2C 787.1 cm???/min???m??? LV Diastolic Length 2C 6.1 cm LV Systolic Length 2C 5.0 cm LA Volume 60.0 cm??? 18 - 58 / 22 - 52 cm??? LA Volume Index 30.6 cm???/m??? 16 - 28 cm???/m??? M-MODE Aortic Root Diameter MM 2.8 cm LA Systolic Diameter MM 3.5 cm LA Ao Ratio MM 1.2 AV Cusp Separation MM 1.3 cm DOPPLER AV Peak Velocity 201.3 cm/s AV Peak Gradient 16.2 mmHg AV Mean Velocity 136.0 cm/s AV Mean Gradient 8.5 mmHg AV Velocity Time Integral 41.4 cm MV Area PHT 3.1 cm??? Mitral E Point Velocity 79.9 cm/s Mitral A Point Velocity 98.2 cm/s Mitral E to A Ratio 0.8 MV Deceleration Time 247.0 ms TR Peak Velocity 195.5 cm/s TR Peak Gradient 15.3 mmHg Right Ventricular Systolic Press 19.6 mmHg FINDINGS Left Ventricle Left ventricular ejection fraction is estimated at 55-60 %. Moderately increased septal wall thickness. Mildly increased posterior wall thickness. Normal left ventricular systolic function with no obvious regional wall motion abnormalities. Right Ventricle Mild right ventricular dilatation. Right ventricular systolic pressure within normal limits. Right Atrium Mild right atrial dilatation. Left Atrium Mildly increased left atrial volume. Mildly increased left atrial area. Mitral Valve Mitral valve thickened. Trace to mild mitral regurgitation. Aortic Valve Trileaflet aortic valve. Thickened aortic valve without stenosis. Aortic valve sclerosis. Tricuspid Valve Structurally normal tricuspid valve. Trace tricuspid regurgitation. Pulmonic Valve Structurally normal pulmonic valve. Trace pulmonic regurgitation. Pericardium No pericardial or pleural effusion. Aorta Normal size aortic root and proximal ascending aorta. CONCLUSIONS Normal LV systolic function Aortic sclerosis with no stenosis or insufficiency Mildly enlarged right ventricle Normal pulmonary artery systolic pressure Previewed by: Dr. Matt Sharma MD (Electronically Signed) Final Date: 03 Nov 2023 12:12
--- NOTE | 2023-11-03 13:12 | CT ---
CTA CHEST EXAMINATION TYPE: CT angio chest DATE OF EXAM: 11/03/2023 INDICATION: pulmonary embolism and pleural effusion . CT DLP: 341.40 mGycm, Automated exposure control for dose reduction was used. CONTRAST: Patient injected with 100ml mL of Isovue 370. COMPARISON: TECHNIQUE: CT of the chest is performed on a spiral scan at 2 mm thick sections. Study is performed with intravenous contrast timed for evaluation for pulmonary embolism. This will limit additional po rtions of the evaluation. 3-D MIP images reconstructed by the technologist are reviewed on the compu ter in the coronal and sagittal planes. FINDINGS: Filling defects are in the right lower lobe pulmonary arteries compatible with acute pulmonary emboli . Additional pulmonary emboli are in the left lower lobe. No mediastinal or hilar adenopathy enlarged by CT criteria is evident. The ascending aorta diameter at the level of the main pulmonary artery is 3.3 cm. The main pulmonary artery diameter at the bifurcation is 3.0 cm. Lung windows are clear. Some minimal pulmonary fibrosis may be at the lung apices. There is a small p osterior right pleural effusion at the lung base. Some adjacent atelectasis may be present. Dependent atelectasis at the left lung base. Limited CT sections were through the upper abdomen. Upper abdomen appears unremarkable. IMPRESSION: 1. Acute bilateral lower lobe pulmonary emboli. 2. Small right lower lung field posterior pleural effusion. This may be loculated. 3. Mild bibasilar atelectasis A Red level critical message alert has been initiated for Traci Chadwick DO via the [employer] Critical Results System on 11/03/2023 1:08 PM. This message alert has been sent to Traci Chadwick DO via the preferences provided by the clinician for the receipt of Radiology Critical Findings. [facility] ID [id number].
[2023-11-03] MEDS ORDERED: HEPARIN SODIUM 1,000 UN/ML (10ML VL) IV PRN (13:28)
[2023-11-03] MEDS: HEPARIN SOD,PORK IN 0.45% NACL 25,000 UNIT in 0.45% NACL 1 250ML.BAG IV SCH (13:48)
--- NOTE | 2023-11-03 14:08 | P.CNNES ---
History of Present Illness Consult date: 11/03/23 Requesting physician: Donny Shirley Reason for Consult: CVA/AMS History of Present Illness: Patient is a 72-year-old right-handed female with history of hypertension, tobacco use, hyperlipidemia, was brought to the hospital for chest pain, and breathing issues going on for 4 days. Patient's daughter was present, who provided with a history. She mentions that in mid of August 2023, she has abrupt onset of confusion, as she would mix up the days, dates, forgetful about the appointments not taking care of herself. They saw her primary physician, who initiated an MRI of the brain, which is scheduled in the near future. In beginning of September, patient's daughter noticed that she was not able to write, open water bottle, that lasted for a day. Usually she walks but lately she has been unsteady on the feet. She does not use any assistive device or cane or walker. In the last 1 month, patient daughter is noticing that the patient is having some slurring of speech, and she is speaking slowly. Yesterday when she brought her to the ER, she noticed her left side of the face was droopy. Vital signs on arrival blood pressure 123/73, pulse 87 temperature 97.8. Subsequent temperature was 100.8. Blood test shows normal CBC, PT PTT, normal CMP, troponin, ammonia less than 9. UA shows large amount of leukocyte esterase and more than 182 WBCs and many bacteria. TSH is normal. EKG shows sinus rhyt hm. Chest x-ray showed small right pleural effusion, COPD. CT head revealed no acute intracranial process. Nonspecific white matter changes, likely secondary to chronic small vessel ischemic disease. Remote injuries to the right basal ganglia right caudate nucleus and thalami. Correlate with MRI. I personally reviewed CT head and agree with the findings. Patient's daughter mentions that about 4 years ago, she had an episode, in which she was not able to walk. Patient has smoked half pack per day for last 5 years. Prior she has smoked a pack a day for 40 years. Does not drink any alcohol. Patient has hypertension and hyperlipidemia but denies diabetes. Patient lives by herself. Patient does not take any antiplatelet medication at home. Review of Systems Constitutional: Reports fever, Denies chills Eyes: denies blurred vision, denies diplopia, denies pain, denies loss of vision Ears: deny: decreased hearing, ear discharge Ears, nose, mouth and throat: Denies headache, Denies sore throat, Denies vertigo Cardiovascular: Reports chest pain, Reports high blood pressure, Reports lightheadedness, Reports shortness of breath Respiratory: Reports cough, Denies excessive sputum Gastrointestinal: Reports diarrhea, Denies abdominal pain, Denies nausea, Denies vomiting Genitourinary: Reports urge incontinence, Denies dysuria, Denies hematuria Musculoskeletal: Denies low back pain, Denies neck pain Integumentary: Denies pruritus, Denies rash Neurological: Reports as per HPI Psychiatric: Reports anxiety, Reports depression Hematologic/Lymphatic: Reports easy bruising, Denies easy bleeding Past Medical History Past Medical History: GERD/Reflux, Hyperlipidemia, Thyroid Disorder Additional Past Surgical History / Comment(s): thyroidectomy Past Psychological History: Depression Past Alcohol Use History: None Reported Past Drug Use History: None Reported - Past Family History Mother History Unknown: Yes Medications and Allergies Home Medications Medication Instructions Recorded Confirmed Type Atorvastatin [Lipitor] 40 mg PO DAILY 11/02/23 11/02/23 History Calcium Carbonate [Calcium] 600 mg PO DAILY 11/02/23 11/02/23 History Esomeprazole Magnesium [NexIUM] 20 mg PO DAILY 11/02/23 11/02/23 History Levothyroxine Sodium [Synthroid] 137 mcg PO DAILY 11/02/23 11/02/23 History Levothyroxine Sodium [Synthroid] 150 mcg PO DIRECTED 11/02/23 11/02/23 H istory Venlafaxine HCl [Effexor XR] 150 mg PO DAILY 11/02/23 11/02/23 History amLODIPine [Norvasc] 5 mg PO DAILY 11/02/23 11/02/23 History Allergies Allergy/AdvReac Type Severity Reaction Status Date / Time diphenhydramine AdvReac Hallucinati Verified 11/02/23 17:23 [From Jason] ons Physical Examination - Vital Signs Vital Signs: Vital Signs Temp Pulse Resp BP Pulse Ox 11/03/23 13:00 74 18 121/59 96 11/03/23 10:43 77 18 127/60 94 L 11/03/23 08:53 74 18 124/57 95 11/03/23 08:32 93 L 11/03/23 05:00 100.8 F H 82 18 112/50 87 L 11/03/23 01:08 78 22 108/48 92 L 11/02/23 23:48 76 18 126/51 11/02/23 17:21 78 16 113/52 98 Patient is an elderly female, very pleasant, in no acute distress. Patient is alert awake oriented to time place and person. Speech and language functions are normal. Patient can name and repeat very well. No aphasia or dysarthria. Attention, concentration and fund of knowledge is adequate. Detailed cognitive function testing deferred. On cranial nerve examination, pupils are equal, round and reacting to light, visual kincaid are full on confrontation, with no neglect on double simultaneous stimulation. Extraocular muscles are intact with no nystagmus. Patient has left facial droop. Her tongue protrudes to the midline. Palatal elevation and sensation normal, hearing and shoulder shrug normal, facial sensation normal. On muscle strength testing, there is no pronator drift and the strength is normal in arms and legs distally and proximally. Deep tendon reflexes are asymmetric (right/left) biceps 1+/2+, brachioradialis 1+/2+, knees 1+/1+, ankles 1+/1+ and plantars down on the right, up on left. Sensory to touch is equal with no neglect on double simultaneous stimulation. Cerebellar function showed no ataxia for [id number] testing. No dysdiadoc hokinesia. No ataxia for [id number] testing on either side. Tone and bulk of muscles normal. Gait deferred.. On general examination, there is no carotid bruit or murmur, S1-S2 audible. Chest is clear on consultation. Abdomen is soft nontender. No organomegaly, bowel sounds present. Peripheral pulses are present. No peripheral edema. Results - Laboratory Findings CBC and BMP: 11/04/23 08:56 11/04/23 08:56 Abnormal Lab Findings: Abnormal Labs 11/03/23 11/03/23 05:00 06:41 HDL Cholesterol 30.70 L Urine Appearance Cloudy H Urine Blood Trace H Ur Leukocyte Esterase Large H Urine WBC >182 H Urine Bacteria Many H Urine Mucus Moderate H Assessment and Plan Assessment: * Acute left facial droop, rule out CVA. Current NIH stroke scale is 1. Patient's daughter mentions that patient has been having some slurred, slow speech for the last 1 month and also having some other focal neurological symptoms like difficulty with dexterity of the hand and some confusion for last few months. Rule out recurrent stroke/TIA. * History of probable TIA in the past. * Acute bilateral pulmonary embolism. * Acute UTI. * Hypertension * Hyperlipidemia * Tobacco use Plan: * From neurology perspective patient would need to be started on aspirin regimen. However patient has developed bilateral PE. Neurologically cleared to start heparin without bolus. Benefits are more than risks. * MRI of the brain rule out CVA * Carotid Doppler revealed plaques seen in bilateral bulbs. Left ICA appears tortuous. Antegrade flow in both vertebral arteries. * 2D echo revealed normal left ventricular systolic function with EF 55 to 60%. Moderately increased septal wall thickness. Mildly increased posterior wall thickness. No obvious regional wall motion abnormalities. Left atrium mildly increased in size. Aortic sclerosis with no stenosis or insufficiency. Mildly enlarged right ventricle. * Fasting lipid panel with cholesterol 119, LDL 71, HDL 30, triglycerides 83. Lipitor dose increased from 40 up to 80 mg. * Hemoglobin A1c 5.1 * B12 level is borderline 291. Folate 9. We will start B12. * Telemetry monitoring, rule out arrhythmia * Recommend complete tobacco cessation. * Neurochecks * Patient on ceftriaxone for UTI. * Neurology will follow. Discussed with primary physician. Thank you for the consult. Time with Patient: Greater than 30
[2023-11-03 14:40] LABS: Partial Thromboplastin Time 26.4 sec (22.0-30.0)
--- NOTE | 2023-11-03 16:38 | P.PN ---
Subjective Progress Note Date: 11/03/23 (delayed charting seen at 1030) Patient is a 72-year-old female with worsening congition, hypertension, dyslipidemia, and hypothyroidism who presented to the hospital with family for initially what was thought to be change in mentation. In the emergency department she underwent an extensive evaluation. On arrival to the ER her vital signs are within normal limits. Initial laboratory analysis was unremarkable. Troponin was negative. EKG was nonischemic. She underwent a CT head which demonstrated nonspecific white matter changes with remote injury in the right basal ganglia and right caudate nucleus and thalami. She was started on aspirin and Lipitor. Arrangements were made for admission for possible acute CVA. Urinalysis was then completed which showed greater than 182 white blood cells and the patient spiked a fever with Tmax of 100.8. She was subsequently started on Rocephin. On the morning of 11/03/23 family patient clarified that she was also experiencing right-sided chest pain and shortness of breath. Patient seen and examined at bedside. She is present with her son. She reports that she is here because for the last 4 days she has had some chest pain. It is right-sided without radiation. It is worse when she takes a deep breath or moves. She also feels short of breath and this has been worsening. Her son reports that she has been laying down and has not been moving much recently. They were also concerned about confusion and have been undergoing a workup with Dr. Diamond with plans for an MRI. She denies any history of prior heart attack or stroke. Vital signs reviewed General: Nontoxic, no distress, appears at stated age Cardiovascular: S1S2 reg, no murmur Lungs: CTA bilateral, no rhonchi, no rales, no accessory muscle use Abdominal: Soft, nontender to palpation, no guarding Ext: No gross muscle atrophy, no edema b/l lower extremities, no contractures Neuro: minimal left facial droop, moving all 4 extremities independently. Psych: Alert, oriented, appropriate affect Assessment/Plan: Left sided facial droop Worsening mentation- subacute UTI, POA -Continue with Rocephin 2 g IV piggyback every 24 hours, await urine culture -Case discussed with neurology. There is concern for possible CVA -Await MRI -Aspirin 325 mg daily, Lipitor 80 mg daily -TSH within normal limits -Patient has already been resumed on Norvasc and received it this morning at 9 AM -PT/OT/speech -Fall precautions -Await MRI brain -Echocardiogram without acute clot -Carotid Dopplers with no flow-limiting lesions Right-sided chest pain associated with shortness of breath Right-sided pleural effusion Newly discovered bilateral pulmonary emboli Nicotine dependency -Stat CT angio of the chest was ordered which shows acute bilateral lower lobe pulmonary emboli with possible small right lower lobe loculated pleural effusion -Case is discussed with neurology due to concerns of possible acute CVA and the decision was made to anticoagulate using a heparin drip with no bolus -Will consult pulmonary regarding loculated pleural effusion - Patient declined nicotine replacement therapy Imaging: CTA chest ordered and reviewed with pulmonary embolism bilaterally and possible small right sided loculated pleural effusion Echocardiogram: Ejection fraction 55 to 60%, aortic sclerosis, mildly enlarged right ventricle with normal pulmonary artery pressures. Carotid Doppler: Atherosclerotic disease without significant stenosis Data Review: Labs reviewed from today include TSH and cholesterol profile which are normal. Stat troponin and BNP ordered which are within normal. DVT prophylaxis: Heparin gtt Anticipated discharge date: Pending Clinical Course Anticipated discharge place: Pending Clinical Course This dictation was prepared using [employer]kip[employer] voice recognition software. Though every attempt is made to correct errors during dictation some may still exist. Objective - Vital Signs Vital signs: Vital Signs Temp 100.8 F H 11/03/23 05:00 Pulse 76 11/03/23 14:29 Resp 16 11/03/23 14:29 BP 120/62 11/03/23 14:29 Pulse Ox 94 L 11/03/23 14:29 FiO2 Intake & Output 11/02/23 11/03/23 11/03/23 18:59 06:59 18:59 Weight 81.647 kg 81.647 kg - Labs CBC & Chem 7: 11/02/23 16:31 11/02/23 16:31 Labs: Abnormal Lab Results - Last 24 Hours (Table) 11/03/23 11/03/23 Range/Units 05:00 06:41 HDL Cholesterol 30.70 L (40.00-60.00) mg/dL Urine Appearance Cloudy H (Clear) Urine Blood Trace H (Negative) Ur Leukocyte Esterase Large H (Negative) Urine WBC >182 H (0-5) /hpf Urine Bacteria Many H (None) /hpf Urine Mucus Moderate H (None) /hpf
[2023-11-03] MEDS: CYANOCOBALAMIN 1,000 MCG/ML 1 ML VIAL IM ONE (16:55)
--- NOTE | 2023-11-03 18:44 | US ---
EXAMINATION TYPE: US venous doppler duplex LE DATE OF EXAM: 11/03/2023 5:10 PM COMPARISON: NONE CLINICAL INDICATION: Female, 72 years old with history of pulmonary embolism; PE SIDE PERFORMED: Bilateral TECHNIQUE: The lower extremity deep venous system is examined utilizing real time linear array sonog vonnie with graded compression, doppler sonography and color-flow sonography. VESSELS IMAGED: Common Femoral Vein Deep Femoral Vein Greater Saphenous Vein * Femoral Vein Popliteal Vein Small Saphenous Vein * Proximal Calf Veins (* superficial vessels) Right Leg: No evidence for DVT Left Leg: No evidence for DVT IMPRESSION: Grayscale, color doppler, spectral doppler imaging performed of the deep veins of the lo wer extremities. There is normal flow, compressibility, vascular waveforms.
[2023-11-04 09:28] LABS: HCT 40.4 % (34.0-46.0); HGB 12.9 gm/dL (11.4-16.0); MCH 31.9 pg (25.0-35.0); MCV 99.6 fL (80.0-100.0); Mean Platelet Volume 10.3; Platelet Count 266 k/uL (150-450); RBC 4.05 m/uL (3.80-5.40); WBC 9.3 k/uL (3.8-10.6)
[2023-11-04 10:52] VITALS: RESP 17; TEMP 98.2
--- NOTE | 2023-11-04 11:02 | MR ---
EXAMINATION TYPE: MR brain wo con DATE OF EXAM: 11/04/2023 10:51 AM CLINICAL INDICATION:Female, 72 years old with history of Neuro deficit, acute, stroke suspected; PHH, Neuro deficit, acute, stroke suspected COMPARISON: 11/02/2023. TECHNIQUE: Multi planar, multi sequence imaging was performed through the brain including: T1, T2, In version recovery, Diffusion weighted imaging, and gradient echo imaging. No gadolinium was given. FINDINGS: Remote injuries to the right basal ganglia. The periphery of this right basal ganglia may h ave thin rim of restricted diffusion. This is best appreciated on series 303 image 152 The bhatti-white junctions, ventricular system, basal cisterns appear unremarkable. Extensive conflue nt and scattered foci of high T2 signal intensity are seen within the periventricular white matter. M idline structures show no abnormality. The susceptibility weighted images do not reveal any evidence for micro-hemorrhage. The bone marrow signal is within normal limits. Paranasal sinuses and mastoid air cells: No significant paranasal sinus disease. Visualized orbits: Orbital contents are intact. IMPRESSION: 1. Right basal ganglia remote appearing CVA with thin rim of possible restricted diffusion suggesting same territory acute/subacute CVA. 2. Extensive Nonspecific white matter changes, likely secondary to small vessel ischemic disease.
[2023-11-04 11:27] LABS: African American GFR (CKD) >90 (>60 ml/min/1.73 sqM); Anion Gap 8 mmol/L; Blood Urea Nitrogen 11 mg/dL (7-17); Calcium 8.5 mg/dL (8.4-10.2); Carbon Dioxide 24 mmol/L (22-30); Chloride 110 mmol/L (98-107); Glucose 147 mg/dL (74-99); Non-African American GFR(CKD) >90 (>60 ml/min/1.73 sqM); Potassium 3.4 mmol/L (3.5-5.1); Sodium 142 mmol/L (137-145)
[2023-11-04 12:25] VITALS: BP 116/76; PULSE 76
[2023-11-04] MEDS: APIXABAN 5 MG TAB PO STA (14:21)
--- NOTE | 2023-11-04 15:59 | P.DS ---
Providers Date of admission: 11/02/23 17:45 Expected date of discharge: 11/04/23 Attending physician: Traci Chadwick DO Consults: 11/02/23 17:44 Consult Physician Routine Consulting Provider: Rosemary Zaidi Consult Reason/Comments: CVA/AMS Do you want consulting provider notified?: Yes 11/03/23 16:14 Consult Physician Routine Consulting Provider: Yolanda Montoya Consult Reason/Comments: loculated pleural effusion with pulmonary embolism Do you want consulting provider notified?: Yes Primary care physician: Tomás Camp Hospital Course: Left sided facial droop Worsening mentation- subacute UTI, POA Right-sided chest pain associated with shortness of breath Right-sided pleural effusion Newly discovered bilateral pulmonary emboli Nicotine dependency Hospital Course: Patient is a 72-year-old female with worsening congition, hypertension, dyslipidemia, and hypothyroidism who presented to the hospital with family for initially what was thought to be change in mentation. In the emergency department she underwent an extensive evaluation. On arrival to the ER her vital signs are within normal limits. Initial laboratory analysis was unremarkable. Troponin was negative. EKG was nonischemic. She underwent a CT head which demonstrated nonspecific white matter changes with remote injury in the right basal ganglia and right caudate nucleus and thalami. She was started on aspirin and Lipitor. Arrangements were made for admission for possible acute CVA. Urinalysis was then completed which showed greater than 182 white blood c ells and the patient spiked a fever with Tmax of 100.8. She was subsequently started on Rocephin. On the morning of 11/03/23 family patient clarified that she was also experiencing right-sided chest pain and shortness of breath. CTA chest ordered and reviewed with pulmonary embolism bilaterally and possible small right sided loculated pleural effusion Echocardiogram: Ejection fraction 55 to 60%, aortic sclerosis, mildly enlarged right ventricle with normal pulmonary artery pressures. Carotid Doppler: Atherosclerotic disease without significant stenosis Pt was dsicharged with eliquis for pulm embolism. Cefdinir was prescribed an additional 3 days to complete 5 day course for cUTI. ASA reduced from 325mg to 81mg on discharge, this is a new medication for the patient. Atorvastatin was increased to 80mg. Pt will f/u with PCP for further workkup of confusion. I spent 40 min coordinating this discharge Vital signs reviewed General: Nontoxic, no distress, appears at stated age Cardiovascular: S1S2 reg, no murmur Lungs: CTA bilateral, no rhonchi, no rales, no accessory muscle use Abdominal: Soft, nontender to palpation, no guarding Ext: No gross muscle atrophy, no edema b/l lower extremities, no contractures Neuro: minimal left facial droop, moving all 4 extremities independently. Psych: Alert, oriented, appropriate affect Patient Condition at Discharge: Stable Plan - Discharge Summary Discharge Rx Participant: Yes New Discharge Prescriptions: New Atorvastatin [Lipitor] 80 mg PO HS #30 tab Cefdinir [Omnicef] 300 mg PO Q12HR #6 capsule Aspirin 81 mg PO DAILY #30 tab Apixaban [Eliquis Starter Pack (for VTE)] 5 - 10 mg PO DIRECTED 30 Days #1 each Continue Levothyroxine Sodium [Synthroid] 137 mcg PO DAILY Levothyroxine Sodium [Synthroid] 150 mcg PO DIRECTED Venlafaxine HCl [Effexor XR] 150 mg PO DAILY amLODIPine [Norvasc] 5 mg PO DAILY Esomeprazole Magnesium [NexIUM] 20 mg PO DAILY Calcium Carbonate [Calcium] 600 mg PO DAILY Discontinued Atorvastatin [Lipitor] 40 mg PO DAILY Discharge Medication List Calcium Carbonate [Calcium] 600 mg PO DAILY 11/02/23 [History] Esomeprazole Magnesium [NexIUM] 20 mg PO DAILY 11/02/23 [History] Levothyroxine Sodium [Synthroid] 137 mcg PO DAILY 11/02/23 [History] Levothyroxine Sodium [Synthroid] 150 mcg PO DIRECTED 11/02/23 [History] Venlafaxine HCl [Effexor XR] 150 mg PO DAILY 11/02/23 [History] amLODIPine [Norvasc] 5 mg PO DAILY 11/02/23 [History] Apixaban [Eliquis Starter Pack (for VTE)] 5 - 10 mg PO DIRECTED 30 Days #1 each 11/04/23 [Rx] Aspirin 81 mg PO DAILY #30 tab 11/04/23 [Rx] Atorvastatin [Lipitor] 80 mg PO HS #30 tab 11/04/23 [Rx] Cefdinir [Omnicef] 300 mg PO Q12HR #6 capsule 11/04/23 [Rx] Follow up Appointment(s)/Referral(s): Tomás Camp DO [Primary Care Provider] - 1-2 days [facility], [NON-STAFF] - Tamir Gagnon MD [Medical Doctor] - 2 Weeks Patient Instructions/Handouts: Ischemic Stroke (DC) Discharge/Stand Alone Forms: Who Do I Call?, Adult Foster [facility] List, Assisted Living Facilities, Community Resources, Help In The Home, Personal [employer] Discharge Disposition: HOME WITH HOME HEALTH SERVICES
[2023-11-05] MEDS ORDERED: ASPIRIN 81 MG PO SCH (09:00)
== END 2023-11-04 15:51 | disposition home health service (06) | DRG 175 ==
LOC: EC 12:40 → 3SCARD 17:45
PROVIDERS: ADMIT Internal Medicine; ATTEND Internal Medicine
DX: I26.99 Other pulmonary embolism without acute cor pulmonale (principal); I63.89 Other cerebral infarction; N39.0 Urinary tract infection, site not specified; J44.9 Chronic obstructive pulmonary disease, unspecified; I77.1 Stricture of artery; I70.0 Atherosclerosis of aorta; I11.9 Hypertensive heart disease without heart failure; E89.0 Postprocedural hypothyroidism; E78.5 Hyperlipidemia, unspecified; Z66 Do not resuscitate; F17.210 Nicotine dependence, cigarettes, uncomplicated; R29.810 Facial weakness; R26.81 Unsteadiness on feet; R41.0 Disorientation, unspecified; R29.701 NIHSS score 1; R47.81 Slurred speech; W19.XXXA Unspecified fall, initial encounter; Y92.009 Unspecified place in unspecified non-institutional (private) residence as the place of occurrence of the external cause; Z79.890 Hormone replacement therapy; Z79.899 Other long term (current) drug therapy; Z88.8 Allergy status to other drugs, medicaments and biological substances; Z86.73 Personal history of transient ischemic attack (TIA), and cerebral infarction without residual deficits
CPT/HCPCS: 36415; 70450; 70551; 71046; 71275; 80048; 80053; 80061; 81001; 82140; 82607; 83036; 83880; 84443; 84484; 85025; 85027; 85610; 85730; 87077; 87086; 87186; 93005; 93306; 93880; 93970; 94760; 96365; 96366; 96372; 96375; 99285

== ENCOUNTER → 2024-03-22 | Outpatient (CLI) | payer MEDICARE ==
--- NOTE | 2024-03-22 16:17 | US ---
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 Indirect Doppler criteria was utilized. FINDINGS: EXAM MEASUREMENTS: RIGHT: Peak Systolic Velocity (PSV) cm/sec ----- Right CCA: 86.6 ----- Right ICA: 95.2 ----- Right ECA: 73.2 ICA/CCA ratio: 1.1 RIGHT: End Diastole cm/sec ----- Right CCA: 27.0 ----- Right ICA: 32.5 ----- Right ECA: 23.7 LEFT: Peak Systolic Velocity (PSV) cm/sec ----- Left CCA: 60.0 ----- Left ICA: 94.1 ----- Left ECA: 68.8 ICA/CCA ratio: 1.6 LEFT: End Diastole cm/sec ----- Left CCA: 22.6 ----- Left ICA: 34.7 ----- Left ECA: 28.1 VERTEBRALS (direction of flow): Right Vertebral: Antegrade Left Vertebral: Antegrade Rhythm: Normal CCNA NOTES: Mild atherosclerotic, limited exam due to calcification, deep diving vessels and t ortuosity IMPRESSION: Less than 50% stenosis of the bilateral carotid bifurcations. Criteria for Assigning % of Stenosis / Diameter reduction (Estimation based on the indirect measurements of the internal carotid artery velocities (ICA PSV). 1. Normal (no stenosis)=ICA PSV < 125 cm/s: ratio < 2.0: ICA EDV<40 cm/s. 2. Less than 50% stenosis=ICA PSV < 125 cm/s: ratio < 2.0: ICA EDV<40 cm/s. 3. 50 to 69% stenosis=ICA PSV of 125 to 230 cm/s: ration 2.0 ? 4.0: ICA EDV 40-100 cm/s. 4. Greater than 70% stenosis to near occlusion= ICA PSV > 230 cm/s: ratio > 4.0: ICA EDV > 100 cm/s. 5. Near occlusion= ICA PSV velocities may be low or undetectable: variable ratio and ICA EDV. 6. Total occlusion=unable to detect flow. [facility], , 03/22/2024 4:14 PM
[2024-03-22 17:40] LABS: African American GFR (CKD) >90 (>60 ml/min/1.73 sqM); Blood Urea Nitrogen 9 mg/dL (7-17); Non-African American GFR(CKD) >90 (>60 ml/min/1.73 sqM)
[2024-03-22 18:32] LABS: Blood Urea Nitrogen 7.9 mg/dL (9.0-27.0)
--- NOTE | 2024-03-23 09:55 | CA ---
Transthoracic Echo Report Name: Marie Bettencourt Age: 73 Gender: F : 1950 Exam Date: 03/22/2024 13:54 Exam Location: [facility] Ht (in): 64 Wt (lb): 145 Ordering Physician: Abrahan Jenkins MD Attending/Referring Phys: Abrahan Jenkins MD Bath Attendant Rosalina Ceja, ANALILIA Procedure CPT: Indications: G31.84 MILD COG IMPAIRMENT I63.49 CEREB INFARC Cardiac Hx: Technical Quality: Good Contrast 1: Total Dose (mL): Contrast 2: Total Dose (mL): MEASUREMENTS (Male / Female) Normal Values 2D ECHO LV Diastolic Volume MOD BP 85.5 cm??? 67 - 155 / 56 - 104 cm??? LV Systolic Volume MOD BP 29.9 cm??? 22 - 58 / 19 - 49 cm??? LV Ejection Fraction MOD BP 65.0 % >= 55 % LV Cardiac Index MOD BP 1891.3 cm???/min???m??? LV Diastolic Volume MOD 4C 95.5 cm??? LV Systolic Volume MOD 4C 31.7 cm??? LV Ejection Fraction MOD 4C 66.9 % LV Cardiac Index MOD 4C 2172.9 cm???/min???m??? LV Diastolic Length 4C 8.2 cm LV Systolic Length 4C 6.3 cm LV Diastolic Volume MOD 2C 75.9 cm??? LV Systolic Volume MOD 2C 27.2 cm??? LV Ejection Fraction MOD 2C 64.2 % LV Cardiac Index MOD 2C 1657.0 cm???/min???m??? LV Diastolic Length 2C 8.1 cm LV Systolic Length 2C 6.6 cm DOPPLER TR Peak Velocity 257.0 cm/s TR Peak Gradient 26.4 mmHg Right Atrial Pressure 5.0 mmHg Pulmonary Artery Systolic Pressu 31.4 mmHg Right Ventricular Systolic Press 31.4 mmHg FINDINGS Left Ventricle Left ventricular ejection fraction is estimated at 60-65 %. Left ventricular cavity size normal. Left ventricular wall thickness normal. No obvious regional wall motion abnormalities. Right Ventricle Normal right ventricular size and function. Right ventricular systolic pressure within normal limits. Right Atrium Right atrium not assessed. Left Atrium Left atrium not assessed. Mitral Valve Structurally normal mitral valve. No evidence for mitral valve prolapse. No mitral stenosis. Trace mitral regurgitation. Aortic Valve Trileaflet aortic valve. Aortic valve sclerosis. No aortic stenosis. Trace aortic regurgitation. Tricuspid Valve Structurally normal tricuspid valve. No tricuspid stenosis. Mild tricuspid regurgitation. Pulmonic Valve Pulmonic valve not well visualized. Pericardium No pericardial effusion. Aorta Aortic root and proximal ascending aorta not assessed. CONCLUSIONS Diagnosis cerebral infarction Normal LV size and function Normal RV size and function no intracardiac masses Previewed by: Dr. Alex Gusman MD (Electronically Signed) Final Date: 23 March 2024 09:54
--- NOTE | 2024-04-03 21:06 | CT ---
EXAMINATION TYPE: CT brain wo/w con DATE OF EXAM: 03/22/2024 COMPARISON: 11/02/2023 INDICATION: Mild cognitive impairment. Priors in PACS DLP: 2164.9 mGycm, Automated exposure control for dose reduction was used. CONTRAST: 80 mL Isovue-300 CT of the brain is performed utilizing 3 mm thick sections through the posterior fossa and 3 mm thick sections through the remaining calvarium. Study is performed within 24 hours of arrival to the hosp ital. No abnormal hyperdensity is present to suggest an acute intracranial hemorrhage. No mass lesion is evident. No acute infarcts are evident. There is a lacunar infarct within the right basal ganglia. Old thalami c lacunar infarcts are likely present. Chronic appearing periventricular white matter hypodensity is present, likely on the basis of chronic ischemic change. Ventricles and sulci are mildly prominent for the patient age. Paranasal sinuses and mastoid air cells within the [id number] are clear. IMPRESSION: 1. No acute intracranial process. Follow up MRI can be performed as clinically indicated. 2. Old right lacunar infarct. Old bilateral thalamic lacunar infarcts 3. Chronic appearing periventricular white matter ischemic type changes [facility], , 04/03/2024 9:03 PM
== END | disposition home or self-care (01) ==
LOC: RADECHMAIN 13:13
PROVIDERS: ATTEND Internal Medicine
DX: I65.23 Occlusion and stenosis of bilateral carotid arteries (principal); I63.49 Cerebral infarction due to embolism of other cerebral artery; Z86.73 Personal history of transient ischemic attack (TIA), and cerebral infarction without residual deficits
CPT/HCPCS: 93308; 82565; 84520; 93880; 70470; 36415; Q9967

== ENCOUNTER → 2024-05-08 | Outpatient (CLI) | payer MEDICARE ==
--- NOTE | 2024-05-08 21:11 | MR ---
EXAMINATION TYPE: MR brain wo con DATE OF EXAM: 05/08/2024 8:13 PM COMPARISON: 11/04/2023. CLINICAL INDICATION: Female, 73 years old with history of I63.81, I63.9; memory loss, lacunar infarct ion, cerebral infarction. TECHNIQUE: Multi planar, multi sequence imaging was performed through the brain including: T1, T2, In version recovery, Diffusion weighted imaging, and gradient echo imaging. No gadolinium was given. FINDINGS: Prior lacunar injury and MRI no longer demonstrates restricted diffusion. Mild cerebral atr ophy with proportional dilation of ventricular system. Scattered foci of high T2 signal intensity a re seen within the periventricular white matter. Midline structures show no abnormality. Diffusion-we ighted imaging shows no evidence of restricted diffusion. The susceptibility weighted images there is scattered foci of blooming The bone marrow signal is within normal limits. Paranasal sinuses and mastoid air cells: Trace left mastoid air cell effusion. Visualized orbits: Orbital contents are intact. IMPRESSION: 1. Evidence of prior lacunar injury within the right basal ganglia. No evidence of intracranial mass or acute/subacute infarct. 2. Nonspecific white matter changes, likely secondary to small vessel ischemic disease. 3. Scattered microhemorrhage suggested with blooming artifact present 4. Similar trace left mastoid a ir cell effusion. [facility], , 05/08/2024 9:09 PM
== END | disposition home or self-care (01) ==
LOC: RADMRIMAIN 19:03
PROVIDERS: ATTEND Internal Medicine
DX: I63.81 Other cerebral infarction due to occlusion or stenosis of small artery (principal); I63.9 Cerebral infarction, unspecified; Z86.73 Personal history of transient ischemic attack (TIA), and cerebral infarction without residual deficits
CPT/HCPCS: 70551